=== PATIENT | female | born 1995 | race Caucasian/White ===

== ENCOUNTER 2019-02-10 13:11 | Outpatient (CLI) | payer OTHER ==
--- NOTE | 2019-02-10 13:52 | MRI ---
MR the lumbar spine without contrast INDICATION: History of low back injury and sciatic nerve pain of the left lower extremity since August and September 2018 COMPARISON: None. TECHNIQUE: Multiplanar multisequence MR images were obtained of lumbar spine without IV contrast. FINDINGS: Bone marrow: Bone marrow signal intensity appears within normal limits. Distal spinal cord and conus: Normal. The conus seen to terminate at L1. Visualized retroperitoneum and paraspinal soft tissues: Normal. Vertebral levels: L5-S1: There is a broad-based disc bulge with a superimposed central annular fissure at L5-S1. Annula r fissure measures approximately 8 mm in its greatest mediolateral dimensions.. L4-5: There is a central, cephalad extending disc extrusion measuring approximately 1.0 x 0.6 cm in i ts greatest craniocaudad and mediolateral dimensions respectively. This is causing no appreciable effacement of the thecal sac. No neural foraminal narrowing is evident. L3-4: No appreciable central canal or neuroforaminal narrowing. L2-3: No appreciable central canal or neuroforaminal narrowing. L1-L2: No appreciable central canal or neuroforaminal narrowing. T12-L1: No appreciable central canal or neuroforaminal narrowing. IMPRESSION: 1. Mild spondylosis of the lumbar spine. 2. Small central disc cephalad extending extrusion at L4-5 without appreciable central canal or neura l foraminal narrowing. 2. Mild broad-based disc bulge at L5-S1 with a superimposed central annular fissure.
== END 2019-02-10 13:12 | disposition home or self-care (01) ==
LOC: SCSMRI 13:11
PROVIDERS: ATTEND Neurological Surgery
DX: M47.26 Other spondylosis with radiculopathy, lumbar region (principal); M51.16 Intervertebral disc disorders with radiculopathy, lumbar region; M48.061 Spinal stenosis, lumbar region without neurogenic claudication; M51.17 Intervertebral disc disorders with radiculopathy, lumbosacral region
CPT/HCPCS: 72148